=== PATIENT | female | born 1980 | race Caucasian/White ===

== ENCOUNTER 2022-06-10 10:10 | Emergency (ER) | payer OTHER, SELFPAY ==
--- NOTE | 2022-06-10 10:43 | ED.URI ---
HPI - URI/Sore Throat General Chief Complaint: Upper Respiratory Infection Stated Complaint: swollen throat Time Seen by Provider: 06/10/22 11:15 Source: patient and RN notes reviewed Mode of arrival: ambulatory Limitations: no limitations History of Present Illness HPI Narrative: 41-year-old female presents with concern for painful swallowing, sore throat, swollen tonsils. Reports it started 2 days ago and worsened overnight. Reports she has been taking ibuprofen. She denies nasal congestion, rhinorrhea, headache, cough, upset stomach. Denies known sick contacts MD elicited complaint: sore throat Related Data Home Medications Medication Instructions Recorded Confirmed BuSpar 06/10/22 Klonopin 06/10/22 cyclobenzaprine 06/10/22 trazodone 06/10/22 Allergies Allergy/AdvReac Type Severity Reaction Status Date / Time No Known Allergies Allergy Verified 06/10/22 11:09 Review of Systems Review of Systems: CONSTITUTIONAL: Denies malaise, chills, sweats, or fever. EYES: Denies visual changes, redness, or discharge. ENT: Reports rhinorrhea, congestion, sinus pain, otalgia and sore throat. CARDIOVASCULAR: Denies chest pain, palpitations, or edema. RESPIRATORY: Reports cough. Denies dyspnea. GASTROINTESTINAL: Denies abdominal pain, nausea, vomiting, diarrhea SKIN: Denies rash or itching. MUSCULOSKELETAL: Denies myalgia. NEUROLOGIC: Denies headache. All systems reviewed & are unremarkable except as noted in HPI and below PMFSH Comments At time of signature, agree with nursing past medical, surgical, social and family history. There is no relevant family history pertinent to the presenting complaint Exam Narrative: GENERAL: Well-appearing, well-nourished, and in no acute distress. HEAD: Normocephalic EYES: PERRLA, conjunctivae clear ENT: Nares clear. Mucous membranes moist. TM pearly pagan with dull light reflex bilaterally; no tragal tenderness. Oropharynx erythematous without lesions. Tonsils not enlarged with exudate, no drooling, no hoarseness, no trismus, uvula midline. NECK: Supple. No lymphadenopathy CHEST: Clear to auscultation, breath sounds equal. No wheezing, rhonchi, rales, or stridor. No respiratory distress, speaks in full sentences. HEART: Regular rate and rhythm. No murmur heard. SKIN: Warm, dry, no rash. NEURO: Alert and oriented x3. PSYCH: Normal mood and affect Course Course Emergency Course: Patient is aware of diagnosis, understands and agrees to treatment plan. Anticipatory guidance given. Patient agrees to follow-up as directed and is aware of reasons to seek care at the emergency department. Portions of this record may have been created with voice recognition software Level of Care: Express Care Visit Vital Signs Vital signs: Reviewed. MDM - URI/Sore Throat MDM Narrative Medical decision making narrative: Differential diagnosis considered: Shelton virus, strep pharyngitis, allergic rhinitis, upper respiratory tract infection, sinusitis, rhinosinusitis, nasopharyngitis. viral pharyngitis, otitis media, otitis externa, pneumonia, bronchitis, viral cough syndrome, viral syndrome, and influenza. Exam findings show no acute concerns or changes; patient is non-toxic appearing and is in no distress. Patient is appropriate for outpatient treatment and follow-up. Lab Data Attestation: I reviewed the patient's lab results. Critical Care Time Critical Care Time Critical Care Time: No Discharge Plan Discharge Clinical Impression: Acute tonsillitis Patient Disposition: Home, Self-Care Condition: Stable Instructions: Antibiotic Form, Tonsillitis (ED) Additional Instructions: -Take the medication as prescribed. Throw away the toothbrush after 24hours of antibiotic. -Eat and drink things that are easy to swallow, like tea or soup, or popsicles to suck on. -Oral rinses such as: Salt water gargles and/or may use topical anesthetic (eg. Chloraseptic spray) or lozenges to relieve dr
[2022-06-10 10:48] VITALS: BP 141/81; PULSE 103; RESP 18; TEMP 36.9; O2SAT 99
== END 2022-06-10 11:30 | disposition home or self-care (01) ==
PROVIDERS: Emergency Provider Nurse Practitioner
DX: J03.90 Acute tonsillitis, unspecified (principal); Z87.891 Personal history of nicotine dependence
CPT/HCPCS: 87081; 87880; 99213; G0463

== ENCOUNTER 2024-05-25 19:11 | Emergency (ER) | payer OTHER, SELFPAY ==
--- NOTE | 2024-05-25 19:13 | ED.EAR ---
HPI - Ear Problem General Chief complaint: Ear Stated complaint: lt ear pain Time Seen by Provider: 05/25/24 19:13 Source: patient Mode of arrival: ambulatory Limitations: no limitations History of Present Illness HPI Narrative: Hyun is a 43-year-old female patient presenting to the clinic today with complaints of left ear pain x2 days. She reports she has tried putting garlic well and mineral oil in her urine this help alleviate her pain yesterday however her pain came back worse today. Has been recently swimming. Denies any URI symptoms, fever, chills, or body aches. Related Data Allergies Allergy/AdvReac Type Severity Reaction Status Date / Time No Known Allergies Allergy Verified 05/25/24 19:19 Review of Systems Review of Systems: Pertinent positives per HPI. Patient denies any fever, chills, rash, headache, visual changes, dizziness, cough, shortness of breath, chest pain, palpitations, nausea, vomiting, diarrhea, constipation, abdominal pain, or any urinary issues. PMFSH Comments At the time of my signature, I reviewed and agree with the nursing past medical, surgical, social, and family history. There is no relevant family history pertinent to the patient complaint. Exam Narrative: General: Well-developed, well nourished, in no apparent distress Head: Normocephalic, atraumatic Eyes: Pupils equally round and reactive to light bilaterally, EOM intact, sclera and conjunctive clear, no discharge, lids normal Ears: Right TMs intact and clear, left TM intact, bulging, red, right ear canal clear, left ear canal swollen with tenderness to palpation over the tragus and pulling of the pinna, no drainage, grossly hearing normal. Nose: Nares patent, no discharge, no inflammation, no sinus tenderness. Mouth: Oral pharynx without lesions or masses, good dentition, MMM. Neck: Supple, trachea midline, no enlargement of anterior or posterior cervical nodes, no thyroid masses or goiter palpable. Cardio: Regular rate and rhythm, s1 and s2 normal, no murmur appreciated. Resp: Clear to auscultation bilaterally, no rhonchi, rales, wheezing or rubs Course Course Emergency Course: Portions of this record may have been created with voice recognition software. Level of Care: Express Care Visit Vital Signs Vital signs: Vital signs reviewed Medical Decision Making MDM Narrative Medical decision making narrative: At the time of visit patient is resting comfortably on the exam table. Patient appears to be nontoxic. Plan: I suspect patient has otitis media with otitis externa. Prescription for amoxicillin and ofloxacin ear drops was sent pharmacy. Supportive measures were discussed with the patient and they voiced understanding discharge instructions and agrees to treatment plan. Return precautions reviewed Differential Diagnosis Differential Diagnosis: Otitis media, otitis sternum eustachian tube dysfunction, cerumen impaction, upper respiratory infection, serous otitis Discharge Plan Discharge Clinical Impression: Otitis media Qualifiers: Otitis media type: suppurative Chronicity: acute Laterality: left Recurrence: non-recurrent Spontaneous tympanic membrane rupture: without spontaneous rupture Qualified Code(s): H66.002 - Acute suppurative otitis media without spontaneous rupture of ear drum, left ear Otitis externa Qualifiers: Otitis externa type: diffuse Chronicity: acute Laterality: left Qualified Code(s): H60.312 - Diffuse otitis externa, left ear Patient Disposition: Home, Self-Care Condition: Stable Instructions: Antibiotic Form Additional Instructions: Take any prescribed medications only as directed-ofloxacin ear drops and amoxicillin Tylenol/motrin as needed for pain May use heating pad to alleviate pain If you get recurrent ear infections it may be warranted to follow up with ENT. Follow up with your PCP in 3-5 days if symptoms persist. Prescriptions: New ofloxacin
[2024-05-25 19:19] VITALS: BP 149/76; PULSE 73; RESP 16; TEMP 36.9; O2SAT 100
== END 2024-05-25 19:28 | disposition home or self-care (01) ==
PROVIDERS: Emergency Provider Nurse Practitioner Family
DX: H66.002 Acute suppurative otitis media without spontaneous rupture of ear drum, left ear (principal); H60.312 Diffuse otitis externa, left ear; Z87.891 Personal history of nicotine dependence
CPT/HCPCS: 99213; G0463

== ENCOUNTER 2025-06-13 13:14 | Emergency (ER) | payer OTHER, SELFPAY ==
[2025-06-13] VITALS (9 sets, daily range): BP systolic 132–150; BP diastolic 78–100; PULSE 85–102; RESP 13–18; O2SAT 96–100
--- NOTE | ~2025-06-13 | XR_ITS ---
EXAMINATION: XR chest 1V portable 06/13/2025 13:56 INDICATION: Arm tightness and headache PROCEDURE: AP portable chest COMPARISON: No prior studies for comparison. FINDINGS: The lungs are clear. The cardiomediastinal silhouette is within normal limits. There are no pleural effusions. There is no pneumothorax suspected. IMPRESSION: 1: NO ACUTE CARDIOPULMONARY DISEASE. Reviewed, dictated and finalized at location A.
--- NOTE | ~2025-06-13 | CT_ITS ---
EXAMINATION: CT BRAIN W/O DATE: 06/13/2025 13:36 INDICATION: Headache. Arm tightness. TECHNIQUE: Computed tomography (CT) of the head was performed without intravenous contrast. The dose- length product was 605.33 mGy-cm. COMPARISON: No prior studies for comparison. FINDINGS: Normal brain parenchymal volume for age. Normal pagan-white differentiation. No acute intrac ranial hemorrhage, infarction, mass or mass effect. No ventriculomegaly or midline shift. Midline sagittal images demonstrate a normal corpus callosum, c raniovertebral junction and sella turcica. Basilar cisterns are patent. Paranasal sinuses and mastoids are pneumatized. No depressed skull fractures. IMPRESSION: 1. No acute intracranial abnormality. Reviewed, dictated and finalized at location A. As per stroke protocol, I called these results to emergency room, discussed with Dr. George Otero MD at 06/13/2025 13:44 CDT.
--- NOTE | ~2025-06-13 | CT_ITS ---
EXAMINATION: CTA brain carotid DATE: 06/13/2025 13:54 CDT INDICATION: Arm tightness. Headache. TECHNIQUE: Computed tomographic angiography (CTA) of the head was performed without and with 100 mL O mnipaque-350 intravenous contrast. CTA of the neck was performed with intravenous contrast. The dose- length product was 1051.40 mGy-cm. Maximum intensity projection and volume rendered 3D-reconstruction s were created by the technologist on a separate workstation. COMPARISON: None. FINDINGS: HEAD CTA: Normal intracranial cerebral vasculature without significant stenosis, occlusion or aneurys m. NECK CTA: The origins of the carotid and vertebral arteries are patent. The carotid and vertebral art eries are normal in course and caliber. There is dominant left vertebral artery. No significant ather osclerotic change, stenosis or dissection. No cervical lymphadenopathy. Lung apices are unremarkable. There is 0% stenosis of the proximal right internal carotid artery relative to normal distal artery l umen diameter (NASCET criteria). There is 0% stenosis of the proximal left internal carotid artery re lative to normal distal artery lumen diameter. IMPRESSION: 1: Unremarkable CT angiography of the head and neck. Reviewed, dictated and finalized at location A.
--- NOTE | 2025-06-13 13:25 | ECG_ITS ---
Test Date: 2025-06-13 14:06:57 Measurements Intervals [place] Rate: 89 P: 42 NE: 172 QRS: 3 QRSD: 107 T: 17 QT: 366 QTc: 447 Interpretive Statements SINUS RHYTHM POSSIBLE LEFT ATRIAL ENLARGEMENT INCOMPLETE RIGHT BUNDLE BRANCH BLOCK POSSIBLE LEFT VENTRICULAR HYPERTROPHY BORDERLINE R WAVE PROGRESSION, ANTERIOR LEADS BASELINE WANDER- V1 BORDERLINE ECG No previous ECG available for comparison Electronically Signed On 06-13-2025 14:18:24 CDT by Saud Dunbar D.O.
[2025-06-13 13:43] LABS: Hematocrit 40.4 % (37.0-47.0); Hemoglobin 14.0 g/dL (12.0-15.0); Immature Granulocyte Percent A 0.3 % (0-0.5); Lymphocytes Absolute Auto 2.55 K/mm3 (0.9-3.2); Mean Corpuscular HGB Conc 34.7 g/dl (32-36); Mean Corpuscular Hemoglobin 30.0 pg (26-34); Mean Corpuscular Volume 86.5 fl (80-100); Nucleated Red Blood Cells Absolute Auto 0.000 K/mm3 (0.0-0.012); Nucleated Red Blood Cells Perc 0.0 % (0.0-0.2); Platelet Count Result 286 k/mm3 (150-375); Red Blood Count 4.67 M/mm3 (4.2-5.4); White Blood Count 9.4 K/mm3 (4.5-10.0)
[2025-06-13 13:55] LABS: INR 1.0; Prothrombin Time 13.0 Seconds (11.1-14.7)
[2025-06-13 13:56] LABS: Alanine Aminotransferase 59 U/L (6-35); Albumin Level 4.6 g/dL (3.5-5.1); Alkaline Phosphatase 83 U/L (38-126); Anion Gap 8 mmol/L (4-12); Aspartate Amino Transferase 37 U/L (14-36); Bilirubin,Total 0.5 mg/dL (0.2-1.3); Blood Urea Nitrogen 14 mg/dL (7-17); Calcium 9.5 mg/dL (8.4-10.2); Carbon Dioxide 22 mmol/L (22-30); Chloride 103 mmol/L (98-107); Estimated Glomerular Filt Rate > 60; Glucose 108 mg/dL (65-110); Partial Thromboplastin Time 25.1 Seconds (22.3-36.8); Potassium 3.7 mmol/L (3.4-5.0); Sodium 133 mmol/L (137-145); Total Protein 7.9 g/dL (6.3-8.2)
[2025-06-13 14:07] LABS: Troponin I < 0.012 ng/mL (0.000-0.034)
[2025-06-13] MEDS: MECLIZINE HCL 25 MG TABLET PO (14:39)
--- NOTE | 2025-06-13 14:45 | PC.NURSE ---
patient ambulated to the bathroom with a standby assist. was ambulatory appropriately with a steady gait
--- NOTE | 2025-06-13 15:31 | ED_ITS ---
HPI - Neuro Symptoms/Deficit General Chief Complaint: Suspected CVA Stated Complaint: arms tight, cant get thoughts straight, nausea Time Seen by Provider: 06/13/25 13:31 History of Present Illness HPI Narrative: This is a 45 old female history of anxiety with panic attacks, PTSD presenting for an episode of vertigo. Patient was sitting in her arms her home when she started to feel finding. She then leaned forward and had severe vertigo. This resolved after several minutes although she still felt very very loopy afterwards. She then had to have an episode of diarrhea. She has been in good health overall lately. She denies fevers chills chest pain difficulty breathing or abdominal pain. She has never had vertigo before. She denies slurred speech, difficulty speaking double vision, loss of coordination. No weakness to any extremity. Related Data Allergies Allergy/AdvReac Type Severity Reaction Status Date / Time No Known Allergies Allergy Verified 05/25/24 19:19 Exam 2 Narrative: APPEARANCE: No apparent distress. Head: atraumatic. EYES: EOMI, NOSE: Atraumatic NECK: Trachea midline RESPIRATORY: No increased rate of breathing clear to auscultation CARDIOVASCULAR: RRR, no peripheral edema ABDOMINAL: Non-distended MUSCULOSKELETAl: No obvious deformities NEURO: Alert. Cranial nerves 2-12 grossly intact. Sensation light touch, motor function cerebellar function intact for 4 extremities. Gait exam was normal. No nystagmus arrest, negative test of skew head impulse return SKIN:: Warm, dry. Normal color PSYCHIATRIC: Normal affect NIH 0 Course Vital Signs Vital signs: Vital Signs Pulse Rate 85 06/13/25 13:16 Respiratory Rate 14 06/13/25 13:16 Blood Pressure 150/80 H 06/13/25 13:16 Pulse Oximetry 96 06/13/25 13:16 Pulse Rate 86 06/13/25 13:25 Respiratory Rate 18 06/13/25 13:25 Blood Pressure 150/83 H 06/13/25 13:25 Pulse Oximetry 100 06/13/25 13:25 MDM - Neuro Symptoms/Deficit MDM Narrative Medical decision making narrative: -Course: 45-year-old female presenting with episodic positional vertigo. Symptoms completely resolved in between episodes. CT brain/CTA were unremarkable. Presentation most consistent with BPPV. Educated on the Preeti maneuver. Patient is requesting discharge and is comfortable going home with meclizine and scopolamine. Patient will be given primary care follow-up return precautions. -DDX includes but is not limited to: BPPV orthostatic hypotension, posterior circulation stroke Lab Data 06/13/25 13:30 06/13/25 13:30 Labs: Lab Results 06/13/25 06/13/25 06/13/25 Range/Units 13: 13:26 13:30 WBC 9.4 (4.5-10.0) K/mm3 RBC 4.67 (4.2-5.4) M/mm3 Hgb 14.0 (12.0-15.0) g/dL Hct 40.4 (37.0-47.0) % MCV 86.5 (80-100) fl MCH 30.0 (26-34) pg MCHC 34.7 (32-36) g/dl RDW 12.9 (11.5-14.5) % Plt Count 286 (150-375) k/mm3 MPV 9.9 (7.4-10.4) fl Immature Gran % (Auto) 0.3 (0-0.5) % Neut % (Auto) 64.2 (45.5-73.1) % Lymph % (Auto) 27.2 (18.3-44.2) % Duchesne % (Auto) 6.8 (2.6-8.5) % Eos % (Auto) 1.3 (0-4.4) % Baso % (Auto) 0.2 (0.2-1.2) % Lymph # (Auto) 2.55 (0.9-3.2) K/mm3 Duchesne # (Auto) 0.6 (0.1-0.6) K/mm3 Eos # (Auto) 0.1 (0-0.3) K/mm3 Baso # (Auto) 0.0 (0.0-0.1) K/mm3 Abs Immat Gran (auto) 0.03 (0.00-0.031) K/mm3 Absolute Neuts (auto) 6.0 (1.3-6.7) K/mm3 Absolute Nucleated RBC 0.000 (0.0-0.012) K/mm3 Nucleated RBC % 0.0 (0.0-0.2) % PT 13.0 (11.1-14.7) Seconds INR 1.0 APTT 25.1 (22.3-36.8) Seconds Sodium 133 L (137-145) mmol/L Potassium 3.7 (3.4-5.0) mmol/L Chloride 103 (98-107) mmol/L Carbon Dioxide 22 (22-30) mmol/L Anion Gap 8 (4-12) mmol/L BUN 14 (7-17) mg/dL Creatinine 0.92 (0.7-1.0) mg/dL Estim Creat Clear Calc Not Reportable Estimated GFR > 60 (59 - ) Glucose 108 (65-110) mg/dL POC Capillary Glucose 115 H (65-105) mg/dl Calcium 9.5 (8.4-10.2) mg/dL Total Bilirubin 0.5 (0.2-1.3) mg/dL AST 37 H (14-36) U/L ALT 59 H (6-35) U/L Alkaline Phosphatase 83 (38-126) U/L Troponin I < 0.012 (0.000-0.034) ng/mL Total Protein 7.9 (6.3-8.2) g/dL Albumin 4.6 (3.5-5.1) g/dL POC Urine HCG, Qual Negative (Negative) Discharge Plan Discharge Clinical Impression: Benign paroxysmal positional vertigo Patient Disposition: Home Condition: Stable Instructions: Antibiotic Form, Benign Paroxysmal Positional Vertigo (ED) Additional Instructions: Please use meclizine and scopolamine for your dizziness. You can attempt the Preeti maneuver at home if that provides relief. Please follow-up with your primary care physician for further management. Return to ED if you develop double vision, slurred speech weakness to any extremity or any new or worsening symptoms. Patient Language: Martiniquais Prescriptions: New meclizine 25 mg tablet 25 mg PO TID PRN (Reason: dizziness) Qty: 60 0RF scopolamine base 1 mg over 3 days patch 3 day 1 patch transdermal Q3D PRN (Reason: dizziness or vertigo) Qty: 4 0RF No Action ofloxacin 0.3 % drops 5 drp otic (ear) BID 7 Days Qty: 5 0RF amoxicillin 875 mg tablet 875 mg PO Q12H 7 Days Qty: 14 0RF Follow-up/Referrals: UNKNOWN,DOCTOR [Primary Care Provider] -
[2025-06-13 15:55] LABS: BEDSIDEPREGUCG Negative (Negative)
== END 2025-06-13 17:21 | disposition home or self-care (01) ==
PROVIDERS: Emergency Provider Emergency Medicine
DX: H81.10 Benign paroxysmal vertigo, unspecified ear (principal); R94.31 Abnormal electrocardiogram [ECG] [EKG]; I45.10 Unspecified right bundle-branch block
CPT/HCPCS: 36415; 70450; 70496; 70498; 71045; 80053; 81025; 82948; 84484; 85025; 85610; 85730; 93005; 99284; A9270; Q9967